=== PATIENT | female | born 1995 | race African-American/Black ===

== ENCOUNTER → 2017-10-01 19:01 | Outpatient (CLI) | payer OTHER, MEDICAID, SELFPAY | PROVIDERS: Family Provider Pediatrics; PCP Pediatrics; Visit Provider Obstetrics & Gynecology | DX: O26.899 Other specified pregnancy related conditions, unspecified trimester (principal); R35.0 Frequency of micturition | CPT/HCPCS: 87077; 87086; 87088; 87186 ==

== ENCOUNTER 2017-12-16 13:35 | Outpatient (CLI) | payer OTHER, MEDICAID, SELFPAY ==
[2017-12-16 14:36] VITALS: BMI 30.2
--- NOTE | 2017-12-17 07:02 | OB.TRI.NOTE ---
History of Present Illness Date of Service: 12/16/17 Was patient seen by the physician?: No Reason For Visit: FALL Date of Service: 12/16/17 Final PINKY: 04/01/18 Final PINKY Source: US <20 weeks Gestational age: 25 Weeks and 0 Days History of Present Illness: S/P fall onto back side. No direct trauma to abdomen. No contractions or signs of SROM. No bleeding. Home Medications Medication Instructions Recorded [id number]/FA/Omega3/Dha/Fish Oil 1 each PO DAILY 12/16/17 [ Gummies] Allergies Latex, Natural Rubber Allergy (Verified 12/16/17 14:38) Rash codeine Adverse Reaction (Verified 01/14/17 13:35) Vomiting Physical Exam General: Alert, Oriented x3, Cooperative, No apparent distress Cardiovascular: Regular rate, Regular Rhythm Lungs: Clear to auscultation, Normal air movement Abdomen: Soft, Non Tender, Non-Distended, Gravid, Appropriate for Gestational Age Extremities:: No edema Estimated gestational size: Appropriate for gestational size Presentation: Unable to assess NST - FHR Rate Baby A Baseline: 150s Variability:: Moderate Accelerations:: 10 x 10 Decelerations:: None NST Reactive:: Yes, Appropriate for gestational age FHR Category:: Category I Uterine Activity:: none Impression/Plan Reassuring FHR tracing after fall. No signs of labor or PPROM.
== END 2017-12-16 15:05 | disposition home or self-care (01) ==
LOC: WPOUT 13:47 → WP 12-17 14:34
PROVIDERS: Family Provider Pediatrics; PCP Pediatrics; Visit Provider Obstetrics & Gynecology
DX: O26.892 Other specified pregnancy related conditions, second trimester (principal); W18.30XA Fall on same level, unspecified, initial encounter; Z3A.25 25 weeks gestation of pregnancy
CPT/HCPCS: 59025; 59050; 99218; G0378

== ENCOUNTER → 2018-01-01 18:22 | Outpatient (CLI) | payer OTHER, MEDICAID, SELFPAY ==
[2018-01-01 18:36] LABS: Hematocrit 39.2 % (37-47); Hemoglobin 13.3 g/dl (12.0-15.0); Mean Corp Hgb Conc 33.9 g/gl (32-36); Mean Corpuscular Hgb 31.4 pg (27.0-32.0); Mean Corpuscular Volume 92.5 fL (81-99); Mean Platelet Vol. 11.1 fl (6.2-12.0); Platelet Count 279 K/mm3 (150-450); RBC Distribution Width SD 43.6 fl (35.1-43.9); Red Blood Count 4.24 M/mm3 (4.2-5.4); White Blood Count 13.3 K/mm3 (4.4-11.0)
[2018-01-01 18:39] LABS: Scan Indicated on CBC? Y/N NO
== END ==
PROVIDERS: Visit Provider Obstetrics & Gynecology
DX: Z34.82 Encounter for supervision of other normal pregnancy, second trimester (principal)
CPT/HCPCS: 85027

== ENCOUNTER 2018-01-09 08:13 | Outpatient (RCR) | payer OTHER, MEDICAID, SELFPAY | END 2018-01-31 23:59 | LOC: DC 08:13 | PROVIDERS: Family Provider Pediatrics; PCP Pediatrics; Visit Provider Obstetrics & Gynecology | DX: O24.410 Gestational diabetes mellitus in pregnancy, diet controlled (principal); Z3A.00 Weeks of gestation of pregnancy not specified; Z71.3 Dietary counseling and surveillance | CPT/HCPCS: G0108 ==

== ENCOUNTER → 2018-01-15 17:01 | Outpatient (CLI) | payer OTHER, MEDICAID, SELFPAY ==
[2018-01-15 17:35] LABS: International Normalized Ratio 0.9; Prothrombin Time (Protime)PT. 12.5 SECONDS (11.7-14.9)
[2018-01-15 17:36] LABS: Partial Thromboplast Time 24.4 Seconds (24.1-36.2)
[2018-01-15 17:39] LABS: Hemoglobin 12.8 g/dl (12.0-15.0); Mean Corp Hgb Conc 33.7 g/gl (32-36); Mean Corpuscular Hgb 30.4 pg (27.0-32.0); Mean Corpuscular Volume 90.3 fL (81-99); Mean Platelet Vol. 10.7 fl (6.2-12.0); Platelet Count 269 K/mm3 (150-450); RBC Distribution Width CV 12.8 % (11.6-14.6); RBC Distribution Width SD 41.8 fl (35.1-43.9); Red Blood Count 4.21 M/mm3 (4.2-5.4); White Blood Count 12.5 K/mm3 (4.4-11.0)
[2018-01-15 17:40] LABS: Scan Indicated on CBC? Y/N NO
[2018-01-15 18:01] LABS: AST(SGOT) 14 U/L (15-37); Alanine Aminotransfer ALT/SGPT 18 U/L (13-56); EST Glomerular Filtration Rate 133 mL/min (>60); Est Glom Filt Rate - Afr Amer 161 mL/min (>60); Uric Acid 3.8 mg/dL (2.6-6.0)
== END ==
PROVIDERS: Visit Provider Obstetrics & Gynecology
DX: Z34.83 Encounter for supervision of other normal pregnancy, third trimester (principal)
CPT/HCPCS: 36415; 82565; 84450; 84460; 84550; 85027; 85610; 85730

== ENCOUNTER 2018-01-27 20:25 | Outpatient (CLI) | payer OTHER, MEDICAID, SELFPAY ==
[2018-01-27 21:01] VITALS: BMI 33.1
[2018-01-27 21:12] VITALS: BP 130/87; PULSE 91; RESP 18; TEMP 37; O2SAT 98
--- NOTE | 2018-01-29 07:56 | OB.TRI.NOTE ---
- Problem List (1) 30 weeks gestation of Status: Acute (2) Decreased movement Status: Acute Qualifiers: Fetus number: single or unspecified fetus Trimester: third trimester Qualified Code(s): O36.8130 - Decreased movements, third trimester, not applicable or unspecified History of Present Illness Date of Service: 01/27/18 Was patient seen by the physician?: No Reason For Visit: Decreased FM Final PINKY: 04/01/18 Final PINKY Source: US <20 weeks Gestational age: 30 Weeks and 6 Days History of Present Illness: 22yo G1 @ 30 6/7 wga with decreased FM x 3 hours Home Medications Medication Instructions Recorded Zgf571/FA/Omega3/Dha/Fish Oil 1 each PO DAILY 12/16/17 [ Gummies] Allergies Latex, Natural Rubber Allergy (Verified 01/27/18 21:02) Rash codeine Adverse Reaction (Verified 01/27/18 21:02) Vomiting Physical Exam Vitals: Vital Signs Temp Pulse Resp BP Pulse Ox 98.6 F 91 18 130/87 H 98 01/27/18 21:12 01/27/18 21:12 01/27/18 21:12 01/27/18 21:12 01/27/18 21:12 NST - FHR Rate Baby A Baseline: 150 Variability:: Moderate Accelerations:: 15 x 15 Decelerations:: None NST Reactive:: Yes FHR Category:: Category I Uterine Activity:: none
== END 2018-01-27 21:20 | disposition home or self-care (01) ==
LOC: WPOUT 20:56 → WP 20:57
PROVIDERS: Family Provider Pediatrics; PCP Pediatrics; Visit Provider Obstetrics & Gynecology
DX: O36.8130 Decreased fetal movements, third trimester, not applicable or unspecified (principal); Z3A.30 30 weeks gestation of pregnancy
CPT/HCPCS: 59025; 59050; 99218; G0378

== ENCOUNTER 2018-02-12 08:37 | Outpatient (RCR) | payer OTHER, MEDICAID, SELFPAY | END 2018-02-22 23:59 | LOC: DC 08:37 | PROVIDERS: Family Provider Pediatrics; PCP Pediatrics; Visit Provider Pediatrics | DX: O24.419 Gestational diabetes mellitus in pregnancy, unspecified control (principal); Z71.3 Dietary counseling and surveillance | CPT/HCPCS: 97802 ==

== ENCOUNTER → 2018-02-12 17:32 | Outpatient (CLI) | payer OTHER, MEDICAID, SELFPAY | PROVIDERS: Visit Provider Obstetrics & Gynecology | DX: O23.40 Unspecified infection of urinary tract in pregnancy, unspecified trimester (principal); Z3A.00 Weeks of gestation of pregnancy not specified | CPT/HCPCS: 87086; 87088 ==

== ENCOUNTER → 2018-03-07 15:54 | Outpatient (CLI) | payer OTHER, MEDICAID, SELFPAY ==
[2018-03-07 17:38] LABS: Hematocrit 37.1 % (37-47); Hemoglobin 12.3 g/dl (12.0-15.0); Mean Corp Hgb Conc 33.2 g/gl (32-36); Mean Corpuscular Hgb 29.8 pg (27.0-32.0); Mean Corpuscular Volume 89.8 fL (81-99); Mean Platelet Vol. 11.5 fl (6.2-12.0); Platelet Count 269 K/mm3 (150-450); RBC Distribution Width CV 13.4 % (11.6-14.6); RBC Distribution Width SD 42.9 fl (35.1-43.9); Red Blood Count 4.13 M/mm3 (4.2-5.4); White Blood Count 10.7 K/mm3 (4.4-11.0)
[2018-03-07 17:42] LABS: Scan Indicated on CBC? Y/N NO
[2018-03-07 17:54] LABS: ALB/GLOB Ratio 0.8 RATIO (0.9-2.4); AST(SGOT) 18 U/L (15-37); Alanine Aminotransfer ALT/SGPT 21 U/L (13-56); Alkaline Phosphatase 100 U/L (45-117); Anion Gap 9 (5-15); BUN 7 mg/dL (7-18); BUN/Creat Ratio 10.4 RATIO (10-20); Calcium,Total 8.9 mg/dL (8.5-10.1); Chloride 106 mmol/L (98-107); Creatinine, Serum 0.68 mg/dL (0.55-1.02); EST Glomerular Filtration Rate 116 mL/min (>60); Est Glom Filt Rate - Afr Amer 140 mL/min (>60); Glucose 80 mg/dL (74-106); Potassium 4.2 mmol/L (3.5-5.1); Sodium Level 140 mmol/L (136-145); Uric Acid 4.6 mg/dL (2.6-6.0)
[2018-03-07 18:03] LABS: Protein, Urine (Random) 21.4 mg/dL (<11.9)
== END ==
PROVIDERS: Visit Provider Obstetrics & Gynecology
DX: Z34.83 Encounter for supervision of other normal pregnancy, third trimester (principal)
CPT/HCPCS: 36415; 80053; 82570; 84156; 84550; 85027